=== PATIENT | male | born 1970 | race Two or more races ===

== ENCOUNTER 2025-03-06 08:09 | Day surgery (SDC) | payer OTHER ==
[~2025-03-06] VITALS: Ht 177.8 cm; Wt 81.6 kg
--- NOTE | 2025-03-06 07:21 | NUR ---
SE RECIBE PACIENTE ALERTA Y ORIENTADO X3 , REFERIDO POR LA DRA TESS SMITH LA CUAL LE INDICO QUE PASARA POR SE PARA SER OPERADO POR ABCESO RIZWAN ANAL.
[~2025-03-06 08:09] MED LIST: LEVO-T137 MCG PO
[2025-03-06] MEDS ORDERED: CIPROFLOXACIN IN 5 % DEXTROSE 400 MG/200 ML PIGGYBAG IV STA (09:07)
[2025-03-06] MEDS ORDERED: METRONIDAZOLE/SODIUM CHLORIDE 500 MG/100 ML PIGGYBACK IV STA (09:08)
[2025-03-06] MEDS ORDERED: METRONIDAZOLE/SODIUM CHLORIDE 500 MG/100 ML PIGGYBACK IV ONE (09:30)
[2025-03-06] MEDS ORDERED: CIPROFLOXACIN IN 5 % DEXTROSE 400 MG/200 ML PIGGYBAG IV ONE (09:30)
--- NOTE | 2025-03-06 10:09 | NUR ---
SEC ORIENTA A PTE SOBRE TX MEDICO REFIERE ENTENDER Y ACEPTAR. SE LE CANALIZA EN MANO IZQUIERDA CON ANGIO #18 KAROLYN DE EDEMA Y HERITEMA, SE RADHA MUESTRAS DE LABORATORIO Y SE ADMINISTRA MEDICAMENTO IV ARLINE ORDEN MEDICA BAJO MEDIDAS ASEPTICAS.
[2025-03-06 10:21] LABS: BASO % 1.0 % (0.1-1.2); EOS # 0.05 (0.04-0.54); EOS % 1.3 % (0.7-7.0); LYMPH # 1.59 (1.18-3.74); LYMPH % 41.4 % (19.3-53.1); MEAN PLATELET VOLUME 11.50 fl (9.4-12.4); MONO # 0.62 (0.24-0.82); NEUT # 1.52 (1.56-6.13); NEUT % 39.7 % (34.0-71.1); RED CELL DISTRIBUTION WIDTH 11.2 % (11.6-14.4)
[2025-03-06 10:25] LABS: MONO % 16.1 % (4.7-12.5)
[2025-03-06 10:47] LABS: ALT/SGPT 30.0 U/L (12-78); AST/SGOT 23.0 U/L (15-37); BILIRUBIN TOTAL 0.23 mg/dL (0.3-1.2); BUN CREA RATIO 15.0 (7.0-25.0); CREATININE SERUM 0.92 mg/dL (0.70-1.30); GFR 85.1; GLOBULINA 3.9 G/DL (2.4-3.5); GLUCOSE FASTING 109.0 mg/dL (65-100); OSMOLALITY SERUM 282.0 MOSM/KG (275-295)
[2025-03-06] MEDS ORDERED: 0.9 % SODIUM CHLORIDE 1,000 ML IV SCH (11:00)
[2025-03-06 11:39] LABS: INR 1.1
[2025-03-06 11:41] LABS: URINE APPEARANCE Clear; URINE BILIRRUBIN Negative (NEGATIVE); URINE BLOOD Negative; URINE COLOR Yellow; URINE GLUCOSE Negative (NEGATIVE); URINE KETONE Negative (NEGATIVE); URINE LEUKOCYTE Small; URINE NITRATE Negative; URINE PROTEIN Negative (NEGATIVE); URINE UROBILINOGEN 1.0 E.U./dl
[2025-03-06 11:45] LABS: URINE BACTERIA 4.7 uL (0.0-1933); URINE CAST 0.14 uL (0.0-1.40); URINE EPITHELIAL CELLS 1.6 uL (0.0-38.8); URINE RBC 15.6 uL (0.0-20.8); URINE WBC 3.9 uL (0.0-23.2)
[2025-03-06] MEDS ORDERED: LIDOCAINE HCL 1%/EPINEPHRINE 10 ML VIAL IJ ONE (15:18)
[2025-03-06] MEDS ORDERED: BUPIVACAINE HCL/MPF 0.5% 30ML VIAL ONE (15:18)
[2025-03-06] MEDS ORDERED: POVIDONE-IODINE 118 ML BOTT TOP ONE (16:00)
[2025-03-06 21:09] VITALS: BP 157/89; O2SAT 100
== END 2025-03-06 21:05 | disposition home or self-care (01) ==
LOC: ER 08:09 → CIR.AMB 08:09 → ER 10:57 → SEC-K 10:57 → CIR.AMB 21:05 → SEC-K 21:05
PROVIDERS: Colon & Rectal Surgery; ATTEND General Practice
DX: K61.5 Supralevator abscess (principal); K61.1 Rectal abscess